=== PATIENT | male | born 1965 | race Caucasian/White ===

== ENCOUNTER 2021-11-04 13:10 | Emergency (ER) | payer OTHER ==
[~2021-11-04 13:10] MED LIST: ADVIL200 M1 PO; BACTRIM DS TAB1 EACH PO; IBU800 MG PO; KEFLEX250 MG PO; NORCO 5-325 TA1 EACH PO; PERCOCET 5-3251 EACH PO; VOLTAREN **OUT75 MG PO
[2021-11-04 15:27] LABS: BASOPHIL 0.2 % (0-2); EOSINOPHIL 0.7 % (0-5); HCT 48.1 % (42.0-52.0); HGB 16.5 g/dl (13.2-18.0); LYMPHOCYTE 17.9 % (15-48); MCH 31.5 pg (25.0-31.0); MCHC 34.3 g/dL (32.0-36.0); MCV 91.8 fL (78.0-100.0); MONOCYTE 9.7 % (0-12); MPV 9.9 fL (6.0-9.5); NRBC 0; PLT 210 K/uL (150-400); RBC 5.24 M/uL (4.70-6.00); WBC 8.1 K/uL (4.0-10.5)
[2021-11-04 15:46] LABS: BUN/CREAT RATIO (CALC) 10.7 RATIO; CREATININE 0.75 mg/dL (0.67-1.17); POTASSIUM 4.1 mmol/L (3.5-5.1)
== END 2021-11-04 17:26 | disposition left against medical advice (07) ==
LOC: FER 13:10
PROVIDERS: Nurse Practitioner Family
DX: U07.1 COVID-19 (principal); J45.909 Unspecified asthma, uncomplicated; Z28.310 Unvaccinated for COVID-19; Z53.29 Procedure and treatment not carried out because of patient's decision for other reasons
CPT/HCPCS: 36415; 71046; 80048; 85025; 99283; J7030; U0002